=== PATIENT | female | born 1965 | race Hispanic/Latino ===

== ENCOUNTER → 2019-06-27 | Day surgery (SDC) | payer OTHER ==
[~2019-06-27] MED LIST: FENTANYL CITRATE/PF 100MCG/2 ML INJ ONE; GLUCAGON FOR INJ 1 MG VIAL ONE; HYOSCYAMINE 0.125 MG TAB ONE; IBUPROFEN200 MG PO; LIDOCAINE HCL 2% LOCAL INJ 5 ML SDV VIAL INJ ONE; MIDAZOLAM HCL 2 MG/2 ML VIAL ONE; PROPOFOL IV EMULSION 10 MG/ML 20 ML VIAL ONE; PROPOFOL IV EMULSION 10 MG/ML 50 ML VIAL ONE; TYLENOL PO
[2019-06-27 17:30] VITALS: BP 107/73
--- NOTE | 2019-06-27 23:29 | Operative Report ---
DATE OF PROCEDURE: 06/27/2019 SURGEON: Shady Bella MD PROCEDURE: Colonoscopy with polypectomy. REFERRING PHYSICIAN: Dr. Zana Lees. INDICATIONS FOR COLONOSCOPY: Colorectal cancer screening. MEDICATIONS: The patient was done under MAC. Please see anesthesiologist's note. PROCEDURE IN DETAIL: With the patient in left lateral decubitus position, flexible fiberoptic Olympus colonoscope was inserted into the rectum with ease and advanced all the way to the cecum. It was then withdrawn slowly. Mucosa overlying the cecum, ascending colon, and transverse colon appeared to be within normal limits. One polyp was hot biopsied and one polyp was hot snared from the descending colon. Diverticular disease was noted primarily in the left colon. The rectum grossly appeared to be within normal limits. The scope was then retroflexed into the distal rectum and small internal hemorrhoids were noted none of which was actively bleeding. The scope was then straightened out and it was subsequently withdrawn. The patient tolerated the procedure well. IMPRESSION: 1. Diverticulosis. 2. Descending colon polyps x2, one hot snared and one hot biopsied. 3. Internal hemorrhoids none actively bleeding. PLAN: Follow up histology. Initiate high-fiber, low-fat diet. Initiate high-fiber supplement. The patient might need a followup colonoscopy in 5 years. Shady Bella MD [facility] [place]/[facility] /[id number] cc: Dr. Zana Lees
== END | disposition home or self-care (01) ==
LOC: OR 12:42
PROVIDERS: ATTEND Internal Medicine Gastroenterology
DX: Z12.11 Encounter for screening for malignant neoplasm of colon (principal); K63.5 Polyp of colon; K55.20 Angiodysplasia of colon without hemorrhage; K57.30 Diverticulosis of large intestine without perforation or abscess without bleeding; K64.8 Other hemorrhoids; R03.0 Elevated blood-pressure reading, without diagnosis of hypertension; Z01.810 Encounter for preprocedural cardiovascular examination; Z68.36 Body mass index [BMI] 36.0-36.9, adult; Z80.0 Family history of malignant neoplasm of digestive organs
CPT/HCPCS: 45384; 45385; 93005; J1610; J2001; J2250; J2704 ×2; J3010; 45378